=== PATIENT | female | born 1970 | race Asian ===

== ENCOUNTER 2020-04-11 16:00 | Outpatient (REF) | payer OTHER, SELFPAY ==
--- NOTE | 2020-04-11 16:30 | MM_ITS ---
EXAMINATION: MM DIAGNOSTIC DIGITAL BREAST TOMOSYNTHESIS, RIGHT CLINICAL INFORMATION: Short interval six-month follow-up probable benign calcifications central right breast. No family history breast cancer. The lifetime risk of breast cancer based on the Tyrer-Cuzick Model is 8%. COMPARISON: Mammography: 09/08/2019, 03/10/2019, 08/10/2018, 06/10/2018 (BI-RADS 0), 09/20/2013 TECHNIQUE: Digital breast tomosynthesis is performed in both the craniocaudal and mediolateral oblique views along with computer-aided detection (CAD). Synthesized 2D images are generated from the tomosynthesis. Magnification right CC x2 and magnification right ML views are obtained. FINDINGS: There are scattered areas of fibroglandular density (ACR BI-RADS breast composition Category b). Breast tissue composition borders on heterogeneously dense. The parenchymal pattern is similar to prior studies. There is no developing density or interval mass or architectural abnormality. There are grouped calcifications anterior lower inner right breast similar to prior exams dating back to 2013. The calcifications central right breast mid depth for follow-up are stable from prior diagnostic studies. They will be reassessed at annual bilateral mammography to conclude long-term surveillance, due in 6 months. Results are provided to the patient at time of visit by the technologist. MM/MM tomosynthesis diagnostic RT IMPRESSION: 1. Calcifications central right breast mid depth for follow-up are stable from prior diagnostic studies. 2. Grouped round calcifications anterior lower inner quadrant are similar to prior exams dating back to 2013. ASSESSMENT: BI-RADS 3: Probably Benign RECOMMENDATION: Magnification views right breast at time of annual bilateral mammography to conclude long-term surveillance, due in 6 months. This patient's information was entered into a reminder system with a target due date for their next mammogram.
== END 2020-04-11 16:01 ==
LOC: HO.MAMMO 16:00
PROVIDERS: PCP Internal Medicine; Visit Provider Internal Medicine
DX: R92.1 Mammographic calcification found on diagnostic imaging of breast (principal)
CPT/HCPCS: 77061; 77065

== ENCOUNTER 2020-10-15 14:37 | Outpatient (REF) | payer OTHER, SELFPAY ==
--- NOTE | ~2020-10-15 | MM_ITS ---
EXAMINATION: MM DIAGNOSTIC DIGITAL BREAST TOMOSYNTHESIS, BILATERAL CLINICAL INFORMATION: Due for yearly. Also follow-up probable benign calcifications central right breast. No family history breast cancer. The lifetime risk of breast cancer based on the Tyrer-Cuzick Model is 8%. COMPARISON: Mammography: 04/11/2020, 09/08/2019, 03/10/2019, 08/10/2018, 06/10/2018 (BI-RADS 0), 09/20/2013 (baseline). TECHNIQUE: Digital breast tomosynthesis is performed in both the craniocaudal and mediolateral oblique views along with computer-aided detection (CAD). Synthesized 2D images are generated from the tomosynthesis. Additional magnification views are obtained in the right CC and right ML x2 projections. Case reviewed intra-departmentally with breast subspecialist. FINDINGS: There are scattered areas of fibroglandular density (ACR BI-RADS breast composition Category b). The breast parenchymal pattern is similar to prior exams. There is no developing density or interval mass or architectural abnormality. The axilla and skin contours are unremarkable. Left breast has some scattered punctate round calcifications without change. Right breast calcifications for follow-up central aspect mid depth are stable and now considered to be benign. Chronic stable grouped calcifications again seen anterior lower inner right breast are also considered to be benign. There are some other scattered punctate round and some layering calcifications in the right breast. There is a new group of at least 10 calcifications right breast 8:00 to 9:00 position around 7.5 cm from the nipple. They appear similar to other calcifications in the right breast. There may be 1 with layering in this group. Findings discussed with the patient. The calcifications for follow up right breast are stable over surveillance period and now considered to be benign. Management options for the new calcifications 8:00-9:00 right breast were discussed. Patient prefers short interval follow up rather than stereotactic sampling at this time. MM/MM tomosynthesis diagnostic BI IMPRESSION: 1. Right: New group of calcifications 8:00-9:00 right breast. Other calcifications on right for follow up are without significant change from prior diagnostic exams and now considered to be benign. 2. Left: No mammographic evidence of malignancy. ASSESSMENT: BI-RADS 3: Probably Benign RECOMMENDATION: Diagnostic right mammography in 6 months to include magnification views. This patient's information was entered into a reminder system with a target due date for their next mammogram.
== END 2020-10-15 14:38 | disposition home or self-care (01) ==
LOC: HO.MAMMO 14:37
PROVIDERS: PCP Internal Medicine; Visit Provider Internal Medicine
DX: R92.1 Mammographic calcification found on diagnostic imaging of breast (principal)
CPT/HCPCS: 77062; 77066

== ENCOUNTER 2021-04-25 14:41 | Outpatient (REF) | payer OTHER, SELFPAY ==
--- NOTE | ~2021-04-25 | MM_ITS ---
EXAMINATION: MM DIAGNOSTIC DIGITAL BREAST TOMOSYNTHESIS, RIGHT CLINICAL INFORMATION: Six-month follow up right breast calcifications. The lifetime risk of breast cancer based on the Tyrer-Cuzick Model is 9.8%. COMPARISON: Mammography: 10/15/2020 and studies dating back to 09/20/2013. TECHNIQUE: Digital breast tomosynthesis is performed in both the craniocaudal and mediolateral oblique views along with computer-aided detection (CAD). Synthesized 2D images are generated from the tomosynthesis. Additional spot magnification views of the right breast performed in craniocaudal and 90 degree mediolateral views. FINDINGS: There are scattered areas of fibroglandular density (ACR BI-RADS breast composition Category b). There is stable appearance of scattered and grouped calcifications without new more suspicious grouping of calcifications or new abnormal dominant mass. No architectural distortion is seen. Results are provided to the patient at time of visit by the technologist. MM/MM tomosynthesis diagnostic RT IMPRESSION: There are no significant changes from prior study. ASSESSMENT: BI-RADS 2: Benign. RECOMMENDATION: Routine annual mammography screening, due in 6 months. This patient's information was entered into a reminder system with a target due date for their next mammogram.
== END 2021-04-25 14:42 | disposition home or self-care (01) ==
LOC: HO.MAMMO 14:41
PROVIDERS: Visit Provider Internal Medicine
DX: R92.1 Mammographic calcification found on diagnostic imaging of breast (principal)
CPT/HCPCS: 77061; 77065

== ENCOUNTER 2022-01-29 09:26 | Outpatient (REF) | payer OTHER, SELFPAY ==
[2022-01-29 12:52] LABS: MANUAL DIFF FLAG NO
[2022-01-29 13:29] LABS: Basophils Percent Auto 0.5 % (0-2); Eosinophils Percent Auto 0.7 % (0-4); Hematocrit 39.1 % (37.0-47.0); Hemoglobin 11.7 g/dl (12.0-16.0); Imm Gran Abs Auto 0.02 X10*3/uL (0.00-0.03); Imm Gran Pct Auto 0.3 % (0.0-0.4); Lymphocytes Absolute Auto 1.8 X10*3/uL (1.2-4.9); Mean Corpuscular HGB Conc 29.9 g/dl (31.0-35.0); Mean Corpuscular Hemoglobin 21.8 pg (27.0-33.0); Mean Corpuscular Volume 72.8 fL (80.0-98.0); Mean Platelet Volume 10.6 fL (9.4-12.3); Monocytes Absolute Auto 0.4 X10*3/uL (0.1-1.2); Monocytes Percent Auto 6.7 % (2-11); Neutrophils Absolute Auto 3.8 x10*3/uL (2.0-8.3); Neutrophils Percent Auto 61.8 % (45-73); Platelet Count 252 X10*3/uL (160-400); Red Blood Count 5.37 X10*6/uL (4.20-5.50); Red Cell Distribution Width 14.5 % (11.0-16.0); White Blood Count 6.1 X10*3/uL (4.8-10.8)
[2022-01-29 14:00] LABS: Alanine Aminotransferase 13 U/L (0-31); Albumin Level 4.6 g/dL (3.5-5.0); Alkaline Phosphatase 98 U/L (39-117); Anion Gap 16 (12-20); Aspartate Amino Transferase 15 U/L (5-31); Bilirubin Total 0.6 mg/dL (0.0-1.0); Blood Urea Nitrogen 11 mg/dL (9-16); Calcium 9.9 mg/dL (8.4-10.2); Carbon Dioxide 24 mmol/L (22-29); Chloride 104 mmol/L (96-108); Cholesterol 196 mg/dL; Estimated Glomerular Filt Rate > 60; Glucose Fasting 100 mg/dL (60-99); HDL Cholesterol 49 mg/dL; Iron 66 mcg/dL (30-160); LDL Cholesterol Calculated 125 mg/dl; Percent Iron Saturation 18 % (15-50); Potassium 4.7 mmol/L (3.3-5.1); Sodium 139 mmol/L (135-145); Total Iron Binding Capacity 365 mcg/dL (228-428); Total Protein 7.4 g/dL (6.5-8.0); Triglycerides 111 mg/dL; Unsaturated Iron Binding 299 ug/dL
[2022-01-29 14:10] LABS: TSH reflex Free T4 1.14 uIU/mL (0.32-4.0); Vitamin D 25-OH Total 10.7 ng/mL (>30)
[2022-01-29 14:26] LABS: Vitamin B12 < 146 pg/mL (200-900)
[2022-01-29 15:20] LABS: Folate 16.4 ng/mL (> or = 4.0)
[2022-01-30 15:11] LABS: Estimated Average Glucose 105 mg/dL; Hemoglobin A1c % 5.3 %
[2022-02-02 14:36] LABS: CRP High Sensitivity 1.7 mg/L
== END 2022-01-29 09:27 | disposition home or self-care (01) ==
LOC: HO.LAB 09:26
PROVIDERS: PCP Internal Medicine; Visit Provider Internal Medicine
DX: Z00.00 Encounter for general adult medical examination without abnormal findings (principal); R73.9 Hyperglycemia, unspecified
CPT/HCPCS: 36415; 80053; 80061; 82306; 82607; 82746; 83001; 83036; 83540; 84443; 85025; 86141

== ENCOUNTER 2022-03-09 12:26 | Outpatient (REF) | payer OTHER, SELFPAY ==
[2022-03-13 05:18] LABS: HPV mRNA E6/E7 Not Detected (Not Detected)
== END 2022-03-09 12:27 | disposition home or self-care (01) ==
LOC: HO.LNP 12:26
PROVIDERS: Visit Provider Internal Medicine
DX: Z01.419 Encounter for gynecological examination (general) (routine) without abnormal findings (principal)
CPT/HCPCS: 87624; 88142

== ENCOUNTER 2022-05-07 13:22 | Outpatient (REF) | payer OTHER, SELFPAY ==
--- NOTE | ~2022-05-07 | MM_ITS ---
EXAMINATION: MM SCREENING DIGITAL BREAST TOMOSYNTHESIS, BILATERAL CLINICAL INFORMATION: Screening. Asymptomatic. The lifetime risk of breast cancer based on the Tyrer-Cuzick Model is 8.9%. COMPARISON: Mammography: April 25, 2021 and studies dating back to June 10, 2018 TECHNIQUE: Digital breast tomosynthesis is performed in both the craniocaudal and mediolateral oblique views along with computer-aided detection (CAD). Synthesized 2D images are generated from the tomosynthesis. FINDINGS: The breasts are heterogeneously dense, which may obscure small masses (ACR BI-RADS breast composition Category c). There are no new significant masses, abnormal calcifications, or other abnormalities. Multiplicity and bilaterality of stable calcifications again seen. MM/MM tomosynthesis screening BI IMPRESSION: No significant changes from prior exam. ASSESSMENT: BI-RADS 2: Benign RECOMMENDATION: Routine annual mammography screening. This patient's information was entered into a reminder system with a target due date for their next mammogram.
== END 2022-05-07 13:23 | disposition home or self-care (01) ==
LOC: HO.MAMMO 13:22
PROVIDERS: PCP Internal Medicine; Visit Provider Internal Medicine
DX: Z12.31 Encounter for screening mammogram for malignant neoplasm of breast (principal)
CPT/HCPCS: 77063; 77067

== ENCOUNTER 2023-03-12 13:16 | Outpatient (AMB) | payer OTHER, SELFPAY ==
[2023-03-12 13:19] VITALS: BP 110/70; PULSE 82; O2SAT 100; BMI 26.8
--- NOTE | 2023-03-12 13:19 | A.OFFPC_ITS ---
Vital Signs 03/12/23 13:19 Height 5 ft Weight 137 lb BMI 26.8 BP 110/70 Blood Pressure Location Lt brachial Position Sitting Pulse 82 Pulse Source Pulse Oximeter Pulse Oximetry (%) 100 Oxygen Delivery Method Room Air Intake Visit Reasons: Annual PE Intake Note: Pt is here today for PE. Allergies No Known Allergies Allergy (Verified 03/12/23 13:22) Medication List - Last Reconciled 03/12/23 by Katia Melara MD cholecalciferol (vitamin D3) 50 mcg PO DAILY cyanocobalamin (vitamin B-12) 1,000 mcg PO DAILY Tobacco use date assessed: 03/12/23 Dental Screening Dental Screen Date: 03/12/23 Did you have a dental visit in the last 12 months?: Yes Did you have a dental problem in the last 6 months where you did not have access to dental care?: No Was dental information given to patient?: Patient has dentist HPI Annual PE HPI Details Pt presents for PE. 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 1. Little interest or pleasure in doing things: not at all 2. Feeling down, depressed, or hopeless: not at all 3. Trouble falling or staying asleep, or sleeping too much: not at all 4. Feeling tired or having little energy: not at all 5. Poor appetite or overeating: not at all 6. Feeling bad about yourself - or that you are a failure or have let yourself or your family down: not at all 7. Trouble concentrating on things, such as reading the newspaper or watching television: not at all 8. Moving or speaking so slowly that other people could have noticed. Or the opposite - being so fidgety or restless that you have been moving around a lot more than usual: not at all 9. Thoughts that you would be better off or of hurting yourself in some way: not at all Total score: 0 Depression Screening Interpretation: Negative Depression Screening Done: Yes Source: Developed by Drs. Carlos Yoder, Elinor Davenport, Rigo Serra and colleagues, with an educational paty from [employer]. Thrive Questionnaire Date Thrive assessed: 03/12/23 I am a: Patient What is your living situation today?: I have a steady place to live Within the past 12 months, did the food you bought not last and you didn't have the money to get more?: Never true Within the past 12 months, did you worry whether your food would run out before you got money to buy more?: Never true Do you have trouble paying for medicines?: No Do you have trouble getting transportation to medical appointments?: No Do you have trouble paying your heating and electricity bill?: No Do you have trouble taking care of your child, family member or friend?: No Do you have trouble with day-to-day activities such as bathing, preparing meals, shopping, managing finances, etc.?: No Are you currently unemployed and looking for a job?: No Are you interested in more education?: No Please select the resources that you would like help with: None AUDIT C Alcohol Use Questionnaire (AUDIT-C) 1. How often do you have a drink containing alcohol?: Never 3. How often do you have six or more drinks on one occasion?: Never Total Score: 0 STEPHIE-7 AMB Questionnaire STEPHIE-7 Date STEPHIE - 7 assessed: 03/12/23 Feeling nervous, anxious, or on edge: 0 = Not at all Not being able to stop or control worryin = Not at all Worrying too much about different things: 0 = Not at all Trouble relaxin = Not at all Being so restless that it is hard to sit still: 0 = Not at all Becoming easily annoyed or irritable: 0 = Not at all Feeling afraid as if something awful might happen: 0 = Not at all Total STEPHIE-7 score (0-4 normal; 5-9 mild; 10-14 moderate; 15-21 severe): 0 Source: Developed by Drs. Carlos Yoder, Elinor Davenport, Rigo Serra and colleagues, with an educational paty from [employer]. Review of Systems Const All systems reviewed & are unremarkable except as noted in HPI and below Reports no additional complaints Eyes Reports no additional complaints ENT Reports no additional complaints Card Reports no additional complaints Resp Reports no additional complaints GI Reports no additional complaints Reports no additional complaints Musc Reports no additional complaints Physical exam (Primary Care) Vital Signs: Last Vital Signs Pulse 82 03/12/23 13:19 BP 110/70 03/12/23 13:19 Pulse Ox 100 03/12/23 13:19 Oxygen Delivery Method Room Air 03/12/23 13:19 BMI result Body Mass Index 26.8 Tobacco/Smoking Status: Tobacco use Status Tobacco use date assessed 03/12/23 03/12/23 13:25 Patient Tobacco Use Status Never used Tobacco 03/12/23 13:25 e-Cigarette/Vaping Use Never Used 03/12/23 13:21 Depression Screening Interpretation: Negative Thrive Assessment: Date of Thrive Assessment Date Thrive assessed 09/16/21 03/12/23 13:21 Const General: no acute distress HENMT Head: Yes normal to inspection Ears: TM's normal bilaterally Face and sinus: Yes normal facial exam Throat: Yes posterior oropharynx normal Eyes General: appearance normal, both eyes and all related structures Neck Neck: Yes no lymphadenopathy and Yes supple Resp Effort & Inspection: normal respiratory effort Auscultation: clear to auscultation bilaterally Cardio Rhythm: regular rhythm Heart sounds: S1 normal heart sound present and S2 normal heart sound present GI Inspection: Yes normal to inspection Palpation (GI): Soft to palpation Percussion: Yes normal to percussion Auscultation: normal bowel sounds Assessment and Plan Assessment & Plan (1) Sleep apnea: Comment: Witnessed sleep apnea, daytime somnolence Code(s): G47.30 - Sleep apnea, unspecified Plan: Obtain home sleep studies (2) Vitamin D deficiency: Code(s): E55.9 - Vitamin D deficiency, unspecified Plan: Continue vitamin-D supplement and check the level (3) Vitamin B12 deficiency: Code(s): E53.8 - Deficiency of other specified B group vitamins Plan: Continue B12 supplement and check the level (4) Hyperglycemia: Code(s): R73.9 - Hyperglycemia, unspecified Plan: Check A1c and insulin (5) Anemia: Code(s): D64.9 - Anemia, unspecified Plan: Repeat CBC, IRON AND B12 LEVEL Orders: Orders Lipid Panel Today E53.8 - Deficiency of other specified B group vitamins, E55.9 - Vitamin D deficiency, unspecified, R73.9 - Hyperglycemia, unspecified, Z00.00 - Encounter for general adult medical examination without abnormal findings Hemoglobin Electrophoresis Today D64.9 - Anemia, unspecified IRON PROFILE Today D64.9 - Anemia, unspecified RT home sleep study Today G47.30 - Sleep apnea, unspecified Complete Blood Count Auto Diff Today E53.8 - Deficiency of other specified B group vitamins, E55.9 - Vitamin D deficiency, unspecified, R73.9 - Hyperglycemia, unspecified, Z00.00 - Encounter for general adult medical examination without abnormal findings Comprehensive [place]. Panel Fast Today E53.8 - Deficiency of other specified B group vitamins, E55.9 - Vitamin D deficiency, unspecified, R73.9 - Hyperglycemia, unspecified, Z00.00 - Encounter for general adult medical examination without abnormal findings Insulin Today E53.8 - Deficiency of other specified B group vitamins, E55.9 - Vitamin D deficiency, unspecified, R73.9 - Hyperglycemia, unspecified, Z00.00 - Encounter for general adult medical examination without abnormal findings Hemoglobin A1c Today E53.8 - Deficiency of other specified B group vitamins, E55.9 - Vitamin D deficiency, unspecified, R73.9 - Hyperglycemia, unspecified, Z00.00 - Encounter for general adult medical examination without abnormal findings TSH reflex Free T4 Today E53.8 - Deficiency of other specified B group vitamins, E55.9 - Vitamin D deficiency, unspecified, R73.9 - Hyperglycemia, unspecified, Z00.00 - Encounter for general adult medical examination without abnormal findings Vitamin B12 and Folate Today E53.8 - Deficiency of other specified B group vitamins, E55.9 - Vitamin D deficiency, unspecified, R73.9 - Hyperglycemia, unspecified, Z00.00 - Encounter for general adult medical examination without abnormal findings C Reactive Protein Today E53.8 - Deficiency of other specified B group vitamins, E55.9 - Vitamin D deficiency, unspecified, R73.9 - Hyperglycemia, unspecified, Z00.00 - Encounter for general adult medical examination without abnormal findings Vitamin D 25-OH Total Today E53.8 - Deficiency of other specified B group vitamins, E55.9 - Vitamin D deficiency, unspecified, R73.9 - Hyperglycemia, unspecified, Z00.00 - Encounter for general adult medical examination without abnormal findings CT Coronary Calcium Score Today UA w Microscopic Today Z00.00 - Encounter for general adult medical examination without abnormal findings Medications: New fluconazole 150 mg PO Q3D 2 tabs 0RF Coding Level of Care Code Est Pt Prev Care 40-64y(58605) Diagnoses Sleep apnea G47.30 Vitamin D deficiency E55.9 Vitamin B12 deficiency E53.8 Hyperglycemia R73.9 Anemia D64.9
== END 2023-03-12 15:17 | disposition home or self-care (01) ==
LOC: HO.HMGC 13:16
PROVIDERS: PCP Internal Medicine; Visit Provider Internal Medicine
DX: Z00.00 Encounter for general adult medical examination without abnormal findings (principal); G47.30 Sleep apnea, unspecified; E55.9 Vitamin D deficiency, unspecified; E53.8 Deficiency of other specified B group vitamins; R73.9 Hyperglycemia, unspecified; D64.9 Anemia, unspecified
CPT/HCPCS: 99396

== ENCOUNTER → 2023-04-29 08:56 | Outpatient (REF) | payer OTHER, SELFPAY | LOC: HO.SL 08:56 | PROVIDERS: PCP Internal Medicine; Visit Provider Internal Medicine | DX: G47.30 Sleep apnea, unspecified (principal); R06.83 Snoring | CPT/HCPCS: 95806 ==

== ENCOUNTER → 2023-04-29 09:10 | Outpatient (BNV) | payer OTHER, SELFPAY | PROVIDERS: PCP Internal Medicine; Visit Provider Internal Medicine | DX: R06.83 Snoring (principal) | CPT/HCPCS: 95806 ==

== ENCOUNTER 2023-05-14 08:33 | Outpatient (REF) | payer OTHER, SELFPAY ==
[2023-05-14 08:50] LABS: MANUAL DIFF FLAG NO
[2023-05-14 09:25] LABS: Basophils Percent Auto 0.4 % (0-2); Eosinophils Absolute Auto 0.1 X10*3/uL (0.0-0.4); Hematocrit 37.2 % (37.0-47.0); Hemoglobin 11.4 g/dl (12.0-16.0); Imm Gran Abs Auto 0.01 X10*3/uL (0.00-0.03); Imm Gran Pct Auto 0.2 % (0.0-0.4); Lymphocytes Absolute Auto 1.7 X10*3/uL (1.2-4.9); Lymphocytes Percent Auto 33.4 % (20-40); Mean Corpuscular HGB Conc 30.6 g/dl (31.0-35.0); Mean Corpuscular Hemoglobin 22.4 pg (27.0-33.0); Mean Corpuscular Volume 73.2 fL (80.0-98.0); Mean Platelet Volume 10.6 fL (9.4-12.3); Monocytes Absolute Auto 0.4 X10*3/uL (0.1-1.2); Monocytes Percent Auto 6.8 % (2-11); Neutrophils Percent Auto 58.2 % (45-73); Platelet Count 222 X10*3/uL (160-400); Red Blood Count 5.08 X10*6/uL (4.20-5.50); Red Cell Distribution Width 15.2 % (11.0-16.0); White Blood Count 5.1 X10*3/uL (4.8-10.8)
[2023-05-14 09:27] LABS: Appearance Urine Clear; Color Urine Yellow; Glucose Urine UA Negative (Negative); Leukocyte Esterase Urine Trace (Negative); Nitrite Urine Negative (Negative); PH 5.5 (5.0-9.0); UMIC TRIGGER UA YES; Urine Blood Negative (Negative); Urine Ketones Negative (Negative); Urine Protein Negative (Neg-Trace)
[2023-05-14 09:32] LABS: Bacteria Urine None Seen (None Seen); Hyaline Casts Urine 0-2 /LPF (0-2); RBC Urine 0-2 /HPF (0-2); Squamous Epithelial Cell Urine 0-2 /HPF (0-2); WBC Urine 0-5 /HPF (0-5)
[2023-05-14 09:35] LABS: Estimated Average Glucose 103 mg/dL; Hemoglobin A1c % 5.2 % (<6.0)
[2023-05-14 10:01] LABS: Alanine Aminotransferase 19 U/L (0-31); Albumin Level 4.3 g/dL (3.5-5.0); Alkaline Phosphatase 109 U/L (39-117); Anion Gap 12 (12-20); Aspartate Amino Transferase 21 U/L (5-31); Bilirubin Total 0.5 mg/dL (0.0-1.0); Blood Urea Nitrogen 12 mg/dL (9-16); Calcium 9.7 mg/dL (8.4-10.2); Carbon Dioxide 25 mmol/L (22-29); Chloride 108 mmol/L (96-108); Cholesterol 180 mg/dL (<200); Estimated Glomerular Filt Rate > 60; Glucose Fasting 91 mg/dL (60-99); HDL Cholesterol 50 mg/dL (>40); Iron 97 mcg/dL (30-160); LDL Cholesterol Calculated 114 mg/dL (<100); Percent Iron Saturation 34 % (15-50); Potassium 4.7 mmol/L (3.3-5.1); Sodium 140 mmol/L (135-145); Total Iron Binding Capacity 287 mcg/dL (228-428); Total Protein 7.2 g/dL (6.5-8.0); Triglycerides 80 mg/dL (<150); Unsaturated Iron Binding 190 ug/dL
[2023-05-14 10:19] LABS: Insulin 5 uU/mL (2-29); TSH reflex Free T4 1.09 uIU/mL (0.32-4.0); Vitamin D 25-OH Total 9.9 ng/mL (>30)
[2023-05-14 10:25] LABS: Vitamin B12 314 pg/mL (200-900)
--- NOTE | 2023-05-14 12:47 | PFT_ITS ---
Flows: FEV1: 73 % of predicted at 1.79 L FVC: 80 % of predicted at 2.44 L FEV1/FVC: 73 % Bronchodilator response: Absent Volumes: Patient unable to maintain tight mouthpiece seal for lung volume testing. Diffusion capacity: Normal Impression: No obstructive ventilatory defect. Spirometry suggests restrictive ventilatory defect. Patient unable to maintain tight mouthpiece seal for lung volume testing. MTDD
[2023-05-27 15:43] LABS: Hematocrit 35.5 % (35.0-45.0); Hemoglobin 11.2 g/dL (11.7-15.5); MCH 22.8 pg (27.0-33.0); MCV 72.2 fL (80.0-100.0); RBC 4.92 Million/uL (3.80-5.10); RDW 14.4 % (11.0-15.0)
== END 2023-05-14 08:34 | disposition home or self-care (01) ==
LOC: HO.RESP 08:33
PROVIDERS: PCP Internal Medicine; Visit Provider Internal Medicine
DX: Z00.00 Encounter for general adult medical examination without abnormal findings (principal); Z12.31 Encounter for screening mammogram for malignant neoplasm of breast; E55.9 Vitamin D deficiency, unspecified; E53.8 Deficiency of other specified B group vitamins; R73.9 Hyperglycemia, unspecified; D64.9 Anemia, unspecified; R09.02 Hypoxemia; G47.30 Sleep apnea, unspecified
CPT/HCPCS: 36415; 77063; 77067; 80053; 80061; 81001; 82306; 82607; 82746; 83020; 83036; 83525; 83540; 84443; 85014; 85018; 85025; 85041; 86140; 94010; 94640; 94727; 94729

== ENCOUNTER → 2023-05-14 12:47 | Outpatient (BNV) | payer OTHER, SELFPAY | PROVIDERS: PCP Internal Medicine; Visit Provider Internal Medicine Pulmonary Disease | DX: R06.09 Other forms of dyspnea (principal) | CPT/HCPCS: 94060; 94729 ==

== ENCOUNTER 2023-05-14 14:21 | Outpatient (REF) | payer OTHER, SELFPAY | END 2023-05-14 14:22 | disposition home or self-care (01) | LOC: HO.MAMMO 14:21 | PROVIDERS: PCP Internal Medicine; Visit Provider Internal Medicine | DX: Z13.89 Encounter for screening for other disorder (principal) ==

== ENCOUNTER → 2023-05-14 15:15 | Outpatient (BNV) | payer OTHER, SELFPAY | PROVIDERS: PCP Internal Medicine; Visit Provider Radiology Diagnostic Radiology | DX: Z12.31 Encounter for screening mammogram for malignant neoplasm of breast (principal) | CPT/HCPCS: 77063; 77067 ==

== ENCOUNTER → 2023-06-04 19:30 | Outpatient (REF) | payer OTHER, SELFPAY | LOC: HO.SL 19:30 | PROVIDERS: PCP Internal Medicine; Visit Provider Internal Medicine | DX: G47.30 Sleep apnea, unspecified (principal); R09.02 Hypoxemia | CPT/HCPCS: 95810 ==

== ENCOUNTER → 2023-06-04 19:30 | Outpatient (BNV) | payer OTHER, SELFPAY | PROVIDERS: PCP Internal Medicine; Visit Provider Psychiatry & Neurology Neurology | DX: R40.0 Somnolence (principal) | CPT/HCPCS: 95810 ==

== ENCOUNTER 2023-08-22 15:04 | Emergency (ER) | payer OTHER, SELFPAY ==
--- NOTE | ~2023-08-22 | XR_ITS ---
Exams: Left shoulder 4 views, chest with left rib 4 views. HISTORY: Pain. FINDINGS: Granulomata upper lung zones noted. There is no definite rib deformity. No focal lesion. No disruption of the glenohumeral joint. No soft tissue calcifications. XR/XR shoulder LT min 2V IMPRESSION: No fracture.
--- NOTE | ~2023-08-22 | CT_ITS ---
EXAM: CT scan of the head and cervical spine. INDICATION: Reason for Exam pain TECHNIQUE: A noncontrast CT scan was performed from the skull base to the vertex. A noncontrast CT scan of the cervical spine was performed from the base of the skull through T1 at 2.5 mm and 1.25 mm collimation. Coronal and sagittal reformats were obtained at the acquisition workstation. This CT examination was performed using dose optimization techniques as appropriate, variously including the following: *Automated exposure control *Adjustment of mA and/or kV according to patient size (this includes techniques or standardized protocols for targeted exams where dose is matched to indication/reason for exam; i.e. extremities or head) *Use of iterative reconstruction technique DLP: 522 and 242 mGy-cm COMPARISON: None FINDINGS: Head: There is no evidence of acute intracranial hemorrhage or territorial infarction. Kauffman-white matter differentiation is preserved. No abnormal mass effect or midline shift. No extra-axial fluid collections. No abnormal attenuation is demonstrated within the brain parenchyma. Scattered periventricular and deep white matter hypodensities consistent with microangiopathy. The ventricles and sulcal spaces are proportional without hydrocephalus. Proportional prominence of the ventricles and sulcal spaces. No acute osseous or soft tissue abnormalities. The mastoid air cells and visualized portions of the paranasal sinuses are well aerated. Cervical Spine: The atlantooccipital and atlantoaxial articulations remain well aligned. Reversal of the normal cervical lordosis. Otherwise, there is anatomic alignment of the vertebral bodies and posterior elements. No evidence of acute fracture or subluxation. The vertebral body heights and disc spaces notable for mild to moderate degenerative disc space narrowing mid cervical spine and marginal osteophytes. Posterior elements intact. There is no prevertebral soft tissue swelling. The thyroid gland and remaining cervical soft tissues are normal in appearance. The lung apices demonstrate no abnormalities. CT/CT cervical spine wo IV con IMPRESSION: No acute intracranial pathology. No acute fracture subluxation cervical spine.
--- NOTE | ~2023-08-22 | XR_ITS ---
Exams: Left shoulder 4 views, chest with left rib 4 views. HISTORY: Pain. FINDINGS: Granulomata upper lung zones noted. There is no definite rib deformity. No focal lesion. No disruption of the glenohumeral joint. No soft tissue calcifications. XR/XR ribs LT min 3V w CXR1V IMPRESSION: No fracture.
[2023-08-22 15:37] VITALS: BP 119/43; PULSE 100; RESP 18; TEMP 37.2; O2SAT 96; BMI 23.6
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
[2023-08-22 18:00] VITALS: BP 115/49; PULSE 68; RESP 18; O2SAT 100
[2023-08-22 18:28] VITALS: BP 115/49; PULSE 68; RESP 18; O2SAT 100
[2023-08-22 18:45] VITALS: BP 115/49; PULSE 68; RESP 18; TEMP 36.4; O2SAT 100
== END 2023-08-22 18:50 | disposition home or self-care (01) ==
PROVIDERS: Emergency Provider Internal Medicine; PCP Internal Medicine
DX: S16.1XXA Strain of muscle, fascia and tendon at neck level, initial encounter (principal); M25.512 Pain in left shoulder; R07.89 Other chest pain; V89.2XXA Person injured in unspecified motor-vehicle accident, traffic, initial encounter; Y93.9 Activity, unspecified; Y92.410 Unspecified street and highway as the place of occurrence of the external cause; Y99.9 Unspecified external cause status
CPT/HCPCS: 70450; 71101; 72125; 73030; 99284

== ENCOUNTER 2023-08-25 12:57 | Outpatient (AMB) | payer OTHER, SELFPAY ==
[2023-08-25 13:12] VITALS: BP 102/64; PULSE 86; O2SAT 99; BMI 25.1
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
== END 2023-08-25 14:34 | disposition home or self-care (01) ==
PROVIDERS: PCP Internal Medicine; Visit Provider Internal Medicine
DX: S39.92XA Unspecified injury of lower back, initial encounter (principal); M54.2 Cervicalgia
CPT/HCPCS: 99213

== ENCOUNTER 2023-09-22 11:27 | Outpatient (REF) | payer OTHER, SELFPAY ==
--- NOTE | ~2023-09-22 | MR_ITS ---
EXAMINATION: MR ANGIOGRAPHY LOWER EXTREMITY WITHOUT AND WITH CONTRAST, LEFT CLINICAL INFORMATION: Pain and swelling of the left foot COMPARISON: None available. TECHNIQUE: MR angiography following the administration of 10 mL Gadavist. FINDINGS: Vascular: The arterial and venous vasculature of the left foot is unremarkable. There is a patent three-vessel runoff to the ankle. The dorsalis pedis artery is patent. There is normal patent deep veins of the foot and ankle. There are no enlarged superficial draining veins. Nonvascular: There is a small 0.7 cm enhancing region in the superficial soft tissues along the plantar hindfoot. MR/MR angio LE LT wo/w con IMPRESSION: 1. Unremarkable MR angiography of the left foot. 2. Small 0.7 cm enhancing region in the superficial soft tissues along the plantar hindfoot. Please see the separately dictated MRI of the foot for additional details.
--- NOTE | ~2023-09-22 | MR_ITS ---
EXAMINATION: MR FOOT WITHOUT AND WITH CONTRAST, LEFT CLINICAL INFORMATION: Left foot pain. Swelling. Vascular malformation. COMPARISON: None available. TECHNIQUE: MRI of the left foot was performed before and after the intravenous administration of 10 mL Gadavist on a high-field scanner. FINDINGS: In the plantar soft tissues at the lateral half midfoot, there is a 1 x 0.8 x 0.8 cm lobular focus of intermediate to increased signal intensity on T2 weighted images and mild enhancement on postcontrast images. There is noted on the vascular images, this does not have high flow on arterial and venous time resolved images. No susceptibility artifact is identified within this lesion. It is separate from the underlying plantar fascia. No additional nodules are identified. There is a small 5 mm focus of increased signal intensity within the great toe distal phalanx on T2-weighted images. This is not well assessed on postcontrast images due to poor fat saturation in this region. This could correspond to a primary intraosseous abnormality such as an enchondroma. The differential would also include abnormalities such as an inclusion cyst or geode. Bone marrow signal is otherwise normal. Joints appear well-preserved. Intrinsic foot musculature is normal in signal intensity. Plantar fascia is unremarkable. MR/MR foot LT wo/w con IMPRESSION: A nonspecific 1 cm mildly enhancing soft tissue nodule in the plantar soft tissues of the midfoot without appreciable high flow on angiographic images. Possibilities include a slow flow venous malformation or epidermal inclusion cyst amongst other possibilities. Consider sonographic follow-up to verify stability. A 5 mm focus of increased T2 signal within the great toe distal phalanx which is partially imaged and also nonspecific in appearance. An enchondroma is most likely, though a geode or epidermal inclusion cyst are also possible. A glomus tumor is also possible if the patient has symptoms localizing to the subungual region at the great toe.
[2023-09-22] MEDS: gadobutroL 10 ML VIAL IVPUSH (13:31)
== END 2023-09-22 11:28 | disposition home or self-care (01) ==
LOC: HO.MRI 11:27
PROVIDERS: PCP Internal Medicine; Visit Provider Student in an Organized Health Care Education/Training Program
DX: R60.0 Localized edema (principal); Q27.32 Arteriovenous malformation of vessel of lower limb; M79.672 Pain in left foot
CPT/HCPCS: 73720; 73725; A9585

== ENCOUNTER → 2024-06-02 15:15 | Outpatient (BNV) | payer OTHER, SELFPAY | PROVIDERS: PCP Internal Medicine; Visit Provider Internal Medicine | DX: Z12.31 Encounter for screening mammogram for malignant neoplasm of breast (principal) | CPT/HCPCS: 77063; 77067 ==

== ENCOUNTER 2024-06-02 15:20 | Outpatient (REF) | payer OTHER, SELFPAY ==
--- OUTSIDE RECORDS SUMMARY | 2024-06-02 16:57 | XMS_ITS | Clinical Summary ---
Author Organization [facility] Address [address] [place] [address] Care Team Providers Care Administrative Support Manager Name Role Phone James De La Fuente MD Primary Care Provider [phone] Allergies No known active allergies Medications No known medications Active Problems No known active problems Immunizations Name Administration Dates Next Due Covid-19 MRNA Vaccine - Pfizer 12+ (Purple Cap) 02/26/2021 Covid-19 mRNA Bivalent Vacci ne - Pfizer 30 mcg/0.3mL 12+ 12/31/2021 Influenza, Unspecified 12/31/2021 Social History Tobacco Use Types Packs/Day Years Used Date Smoking Tobacco: Never Assessed Sex and Gender Information Value Date Recorded Sex Assigned at Female 11/15/2023 7:43 AM EDT Gender Identity Female 11/15/2023 7:43 AM EDT Sexual Orientation Not on file Last Filed Vital Signs Vital Sign Reading Time Taken Comments Blood Pressure - - Pulse - - Temperature - - Respiratory Rate - - Oxygen Saturation - - Inhaled Oxygen Concentration - - Weight 58.1 kg (128 lb 1.4 oz) 11/19/2023 2:36 P M EDT Height 152.4 cm (5') 11/19/2023 2:36 PM EDT Body Mass Index 25.02 11/19/2023 2:36 PM EDT Plan of Treatment Health Maintenance Due Date Last Done Comments Hepatitis C Virus Screening 1971 HIV Screening 01/05/1984 DTaP/Tdap/Td Vaccines (1 - Tdap) 1990 Hepatitis B Vaccines (1 of 3 - 19+ 3-dose series) 1990 Pap Smear (Ages 21-65) 01/05/1992 Mammogram 2011 Colonoscopy 01/05/2016 Pneumococcal Vaccines 50+ (1 of 1 - PCV) 2021 Zoster (Shingles) Vaccine (1 of 2) 2021 Influenza Vaccine 10/28/2023 02/09/2023, , 12/31/2021, Additional history exists COVID-19 Vaccine ( season) 2023 12/23/2022, 12/31/2021, 02/26/2021, Additional history exists Pneumococcal Vaccine: Pediatric (0-5 Years) and At-Risk Patients (6 to 49 Years) Aged Out No longer eligible based on patient's age to complete this topic Care Teams Administrative Support Manager Relationship Specialty Start Date End Date James De La Fuente MD [address] [facility] [place] [address] PCP - General Internal Medicine 11/08/23
--- OUTSIDE RECORDS SUMMARY | 2024-06-02 16:57 | XMS_ITS | Clinical Summary ---
Author Organization [facility] Address [address] [place] [address] Care Team Providers Care Software Engineer Web Applications Name Role Phone Elida Katz MD Primary Care Provider [phone] Immunizations Name Administration Dates Next Due Influenza (SEASONAL) - 11/29/2015,03/13/2015 Social History Tobacco Use Types Packs/Day Years Used Date Smoking Tobacco: Never Assessed Comments Unknown Sex and Gender Information Value Date Recorded Sex Assigned at Not on file Legal Sex Female 4:55 PM EDT Gender Identity Not on file Sexual Orientation Not on file Plan of Treatment Health Maintenance Due Date Last Done Comments Hepatitis C Screening 1971 Pap Smear 1987 DTaP/Tdap/Td (1 - Tdap) 1989 Hep B (1 of 3 - 19+ 3-dose series) 1990 Mammogram/Breast Imaging 12/15/2015 12/14/2014 Pneumococcal 50+ years (1 of 1 - PCV) 2021 Zoster (Shingrix) (1 of 2) 2021 COVID-19 Vaccine ( - 2023-2 5 season) 2023 Influenza (#1) 2023 11/29/2015, 03/13/2015 HPV Vaccine Aged Out No longer eligi ble based on patient's age to complete this topic Hep A Aged Out No longer eligi ble based on patient's age to complete this topic Hib Aged Out No longer eligi ble based on patient's age to complete this topic Meningococcal ACWY Aged Out No longer eligible based on patient's age to complete this topic Procedures Procedure Name Priority Date/Time Associated Diagnosis Comments SCREENING MAMMOGRAPHY BILATERAL, 2 VIEWS EACH BREAST, INCLUDING CAD 12/14/2014 12:00 AM EDT from Last 3 Months or Most Recently Relevant to Health Maintenance Results * SCREENING MAMMOGRAPHY BILATERAL, 2 VIEWS EACH BREAST, INCLUDING CAD (12/14/2014 12:00 AM EDT) Narrative 12/14/2014 12:00 AM EDT Ordered by an unspecified provider. us Unknown Provider GENERAL IMAGING- OTHER Final Re sult from Last 3 Months or Most Recently Relevant to Health Maintenance Care Teams Software Engineer Web Applications Relationship Specialty Start Date End Date Elida Katz MD [facility] [address] [place] [id number] PCP - General 11/02/22
--- OUTSIDE RECORDS SUMMARY | 2024-06-02 16:57 | XMS_ITS ---
Author Name [facility] Organization Unknown History of Medication Use Medication Directions Dispensed Refills Start Date End Date Stat No known medications No known medications active Problems Problem Status Onset Date Problem Type Date of Resoluti on Source Personal history of arterial venous malformation (AVM) active EncounterDiagnosisAct [facility] Mass of foot, unspecified laterality active EncounterDiagnosisAct [facility] Immunizations Vaccine Date Source Lot Number Status Covid-19 mRNA Bivalent Vacci ne - Pfizer 30 mcg/0.3mL 12+ 12/31/2021 [facility] [id number] completed Covid-19 MRNA Vaccine - Pfiz er 12+ (Purple Cap) 02/26/2021 [facility] completed Influenza, Unspecified 12/31/2021 [facility] [id number] co mpleted
== END 2024-06-02 15:21 | disposition home or self-care (01) ==
LOC: HO.MAMMO 15:20
PROVIDERS: PCP Internal Medicine; Visit Provider Internal Medicine
DX: Z12.31 Encounter for screening mammogram for malignant neoplasm of breast (principal)
CPT/HCPCS: 77063; 77067

== ENCOUNTER 2024-12-07 14:22 | Outpatient (AMB) | payer OTHER, SELFPAY ==
--- NOTE | 2024-12-07 14:22 | MHC.PC.OV ---
Vital Signs 12/07/24 14:23 Height 5 ft 1 in Weight 142 lb BMI 26.8 BP 108/66 Blood Pressure Location Lt brachial Position Sitting Respiration 18 Pulse 95 Pulse Source Pulse Oximeter Temp 97.7 F Temp Source Oral Pulse Oximetry (%) 99 Oxygen Delivery Method Room Air Intake Visit Reasons: Annual PE Intake Note: Pt is here today for PE. Allergies No Known Allergies Allergy (Verified 12/07/24 14:25) Medication List - Last Reconciled 12/07/24 by Katia Melara MD No Known Home Meds Tobacco use date assessed: 12/07/24 Dental Screening Dental Screen Date: 12/07/24 Did you have a dental visit in the last 12 months?: Yes Did you have a dental problem in the last 6 months where you did not have access to dental care?: No Was dental information given to patient?: Patient has dentist HPI Annual PE HPI Details Patient presents for physical. She reports perimenopausal symptoms including increased anxiety and feeling overwhelmed sometimes. Hot flashes improved. Patient has not had menses for 1 year and 15 months after her last period started vaginal bleeding. Patient denies pelvic pain or excessive bleeding. 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 1. Little interest or pleasure in doing things: not at all 2. Feeling down, depressed, or hopeless: not at all 3. Trouble falling or staying asleep, or sleeping too much: not at all 4. Feeling tired or having little energy: not at all 5. Poor appetite or overeating: not at all 6. Feeling bad about yourself - or that you are a failure or have let yourself or your family down: not at all 7. Trouble concentrating on things, such as reading the newspaper or watching television: not at all 8. Moving or speaking so slowly that other people could have noticed. Or the opposite - being so fidgety or restless that you have been moving around a lot more than usual: not at all 9. Thoughts that you would be better off or of hurting yourself in some way: not at all Total score: 0 Depression Screening Interpretation: Negative Depression Screening Done: Yes 68551 - PHQ-9 Billing: Yes Source: Developed by Drs. Carlos Yoder, Elinor Davenport, Rigo Serra and colleagues, with an educational paty from [employer]. Thrive Questionnaire Date Thrive assessed: 12/07/24 I am a: Patient What is your living situation today?: I have a steady place to live Within the past 12 months, did the food you bought not last and you didn't have the money to get more?: Never true Within the past 12 months, did you worry whether your food would run out before you got money to buy more?: Never true Do you have trouble paying for medicines?: No Do you have trouble getting transportation to medical appointments?: No Do you have trouble paying your heating and electricity bill?: No Do you have trouble taking care of your child, family member or friend?: No Do you have trouble with day-to-day activities such as bathing, preparing meals, shopping, managing finances, etc.?: No Are you currently unemployed and looking for a job?: No Are you interested in more education?: No Please select the resources that you would like help with: None Currently or been in a relationship where the following occur: No concerns reported THRIVE Score: 0 AUDIT C Alcohol Use Questionnaire (AUDIT-C) 1. How often do you have a drink containing alcohol?: Never 3. How often do you have six or more drinks on one occasion?: Never Total Score: 0 STEPHIE-7 AMB Questionnaire STEPHIE-7 Date STEPHIE - 7 assessed: 12/07/24 Feeling nervous, anxious, or on edge: 0 = Not at all Not being able to stop or control worryin = Not at all Worrying too much about different things: 0 = Not at all Trouble relaxin = Not at all Being so restless that it is hard to sit still: 0 = Not at all Becoming easily annoyed or irritable: 0 = Not at all Feeling afraid as if something awful might happen: 0 = Not at all Total STEPHIE-7 score (0-4 normal; 5-9 mild; 10-14 moderate; 15-21 severe): 0 Source: Developed by Drs. Carlos Yoder, Elinor Davenport, Rigo Serra and colleagues, with an educational paty from [employer]. STEPHIE-7 Assessment Billing STEPHIE-7 Assessment Tool: STEPHIE-7 Assessment 58687 Review of Systems Const All systems reviewed & are unremarkable except as noted in HPI and below Eyes Reports no additional complaints ENT Reports no additional complaints Card Reports no additional complaints Resp Reports no additional complaints GI Reports no additional complaints Reports no additional complaints Musc Reports no additional complaints Physical exam (Primary Care) Vital Signs: Last Vital Signs Temp 97.7 F 12/07/24 14:23 Pulse 95 12/07/24 14:23 Resp 18 12/07/24 14:23 BP 108/66 12/07/24 14:23 Pulse Ox 99 12/07/24 14:23 Oxygen Delivery Method Room Air 12/07/24 14:23 BMI result Body Mass Index 26.8 Tobacco/Smoking Status: Tobacco use Status Tobacco use date assessed 12/07/24 12/07/24 14:28 Patient Tobacco Use Status Never used Tobacco 12/07/24 14:28 e-Cigarette/Vaping Use Never Used 12/07/24 14:28 PHQ-9: PHQ-9 Score PHQ-9: Total score 0 12/07/24 14:29 Depression Screening Interpretation: Negative Thrive Assessment: Date of Thrive Assessment Date Thrive assessed 12/07/24 12/07/24 14:29 Currently or been in a relationship where the following occur: No concerns reported Const General: no acute distress HENMT Head: Yes normal to inspection Ears: hearing grossly normal bilaterally Face and sinus: Yes normal facial exam Mouth: Normal oral and palatal mucosa present Throat: Yes posterior oropharynx normal Eyes General: appearance normal, both eyes and all related structures Neck Neck: Yes no lymphadenopathy and Yes supple Resp Effort & Inspection: normal respiratory effort Auscultation: clear to auscultation bilaterally Cardio Rhythm: regular rhythm Heart sounds: S1 normal heart sound present and S2 normal heart sound present GI Inspection: Yes normal to inspection Percussion: Yes normal to percussion Auscultation: normal bowel sounds Coding Level of Care Code Est Pt Prev Care 40-64y(06092) Diagnoses Postmenopausal Z78.0 Postmenopausal bleeding N95.0 Annual physical exam Z00.00 Additional Codes STEPHIE-7 Assessment Billing - STEPHIE-7 Assessment Tool: STEPHIE-7 Assessment [id number] ([id number]) PHQ-9 - 80007 - PHQ-9 Billing: Yes ([id number]) Assessment & Plan Assessment & Plan (1) Postmenopausal: Code(s): Z78.0 - Asymptomatic menopausal state Category: Medical Plan: Postmenopausal symptoms discussed with the patient. Stress management and counseling were advised (2) Postmenopausal bleeding: Code(s): N95.0 - Postmenopausal bleeding Category: Medical Plan: Obtain pelvic ultrasound to evaluate for endometrial hyperplasia. Patient was advised to see technical business analyst (3) Annual physical exam: Code(s): Z00.00 - Encounter for general adult medical examination without abnormal findings Category: Medical Plan: Well-balanced diet regular physical activity discussed with the patient .she will return for fasting blood work. Patient prefers to have Cologuard for colon cancer screening. She is up-to-date with the mammogram. Orders: Orders Complete Blood Count Auto Diff 12/07/24 E53.8 - Deficiency of other specified B group vitamins, E55.9 - Vitamin D deficiency, unspecified, R73.9 - Hyperglycemia, unspecified Comprehensive Met. Panel 12/07/24 E53.8 - Deficiency of other specified B group vitamins, E55.9 - Vitamin D deficiency, unspecified, R73.9 - Hyperglycemia, unspecified TSH reflex Free T4 12/07/24 E53.8 - Deficiency of other specified B group vitamins, E55.9 - Vitamin D deficiency, unspecified, R73.9 - Hyperglycemia, unspecified Hemoglobin A1c 12/07/24 E53.8 - Deficiency of other specified B group vitamins, E55.9 - Vitamin D deficiency, unspecified, R73.9 - Hyperglycemia, unspecified Vitamin D 25-OH Total 12/07/24 E53.8 - Deficiency of other specified B group vitamins, E55.9 - Vitamin D deficiency, unspecified, R73.9 - Hyperglycemia, unspecified US pelvic and transvaginal 12/07/24 N95.0 - Postmenopausal bleeding Lipid Panel 12/07/24 E53.8 - Deficiency of other specified B group vitamins, E55.9 - Vitamin D deficiency, unspecified, R73.9 - Hyperglycemia, unspecified Vitamin B12 and Folate 12/07/24 E53.8 - Deficiency of other specified B group vitamins, E55.9 - Vitamin D deficiency, unspecified, R73.9 - Hyperglycemia, unspecified UA w Microscopic 12/07/24 E53.8 - Deficiency of other specified B group vitamins, E55.9 - Vitamin D deficiency, unspecified, R73.9 - Hyperglycemia, unspecified Referrals Cologuard Test Z12.11 - Encounter for screening for malignant neoplasm of colon, Z12.12 - Encounter for screening for malignant neoplasm of rectum
[2024-12-07 14:23] VITALS: BP 108/66; PULSE 95; RESP 18; TEMP 36.5; O2SAT 99; BMI 26.8
--- OUTSIDE RECORDS SUMMARY | 2024-12-07 18:08 | XMS_ITS ---
Author Name [facility] Organization Unknown History of Medication Use Medication Directions Dispensed Refills Start Date End Date Stat pimecrolimus (ELIDEL) 1 % cream Apply topically 2 (two) times a day. 06/27/2024 active No known medications No known medications active Immunizations Vaccine Date Source Lot Number Status Covid-19 mRNA Bivalent Vacci ne - Pfizer 30 mcg/0.3mL 12+ 12/31/2021 [facility] [id number] completed Influenza, Unspecified 12/31/2021 [facility] [id number] co mpleted Covid-19 MRNA Vaccine - Pfiz er 12+ (Purple Cap) 02/26/2021 [facility] completed Encounters Encounter Type Encounter Reason Primary Diagnosis Location Date Ambulatory [facility] 06/27/2024 Ambulatory Localized swelling, mass and lump, unspecified lower limb Localized swelling, mass and lump, unspecified lower limb [facility] 11/19/2023 Ambulatory Localized swelling, mass and lump, unspecified lower limb Localized swelling, mass and lump, unspecified lower limb [facility] 11/15/2023 Ambulatory [facility] 01/06/2022 Care Team Organization Name Specialty Phone Email Start Date End [facility] 08/09/2024 [facility] 06/28/2024 [facility]ia [facility] 06/27/2024 07/28/19 [facility] BANDAR PATTERSON Primary Care 11/08/2023 [facility],No Primary Care 01/06/2022 07/27/2024 [facility] NO PCP Primary Care 01/06/2022 01/06/2022
--- OUTSIDE RECORDS SUMMARY | 2024-12-07 18:08 | XMS_ITS | Clinical Summary ---
Author Organization [facility] Address [address] [place] [address] Care Team Providers Care Production Generalist Name Role Phone Elida Katz MD Primary Care Provider [phone] Immunizations Immunization Administration Dates Next Due Influenza (SEASONAL) - [...] (Shingrix) (1 of 2) 2021 COVID-19 Vaccine (1 - 2023-2 5 season) 2024 Influenza (#1) 2024 11/29/2015, 03/13/2015 HPV Vaccine (No Doses Required) Completed Hep A Aged Out No longer eligi [...] Recently Relevant to Health Maintenance Care Teams Production Generalist Relationship Specialty Start Date End Date Elida Katz MD [facility] [address] [place] [address] PCP - General 11/02/22
== END 2024-12-07 15:32 | disposition home or self-care (01) ==
LOC: HO.HMCC 14:22
PROVIDERS: PCP Internal Medicine; Visit Provider Internal Medicine
DX: Z78.0 Asymptomatic menopausal state (principal); N95.0 Postmenopausal bleeding; Z00.00 Encounter for general adult medical examination without abnormal findings

== ENCOUNTER → 2024-12-07 14:22 | Outpatient (BNVA) | payer OTHER, SELFPAY | PROVIDERS: PCP Internal Medicine; Visit Provider Internal Medicine | DX: Z00.00 Encounter for general adult medical examination without abnormal findings (principal); N95.0 Postmenopausal bleeding; Z78.0 Asymptomatic menopausal state; Z13.31 Encounter for screening for depression; Z13.39 Encounter for screening examination for other mental health and behavioral disorders | CPT/HCPCS: 96127 ==